=== PATIENT | male | born 1995 | race Caucasian/White ===

== ENCOUNTER → 2025-02-03 | Outpatient (CLI) | payer OTHER, SELFPAY ==
--- NOTE | 2025-02-03 14:25 | ECHOCS_ITS ---
Reason For Study Reason For Study: Ischemic Heart Disease Procedure This was a 2D Doppler, Color Flow transthoracic echocardiogram. The study was technically difficult. Contrast injection was performed. Exam performed in department. Left Ventricle Normal LV size. Moderate concentric left ventricular hypertrophy. The left ventricular ejection fraction is 55 %. No regional wall motion abnormalities noted. Right Ventricle Normal RV size. Normal systolic function. Atria Normal left atrium. Normal right atrium. Mitral Valve Normal mitral valve. Tricuspid Valve Normal tricuspid valve. Aortic Valve Trisinus/trileaflet aortic valve. Pulmonic Valve Normal pulmonic valve. Great Vessels Normal aortic root. The pulmonary artery is normal size. Inferior vena cava collapse with respiration. Pericardium/Pleural No pericardial effusion. Medication 22 gauge I.V. with prn adaptor inserted into right arm. Diluted definity 1ml given slow IV push to enhance endocardial definition. MMode/2D Measurements & Calculations LVIDd: 4.8 cm IVSd: 1.5 cm CO(Teich): 5.4 l/min LVIDs: 3.7 cm LVPWd: 1.3 cm RVDd: 4.1 cm FS: 24.2 % Ao root diam: 3.7 cm LAV(MOD-bp): 39.6 ml LVAd ap4: 46.6 cm2 LAV(MOD-bp) Indexed: 14.1 ml/m2 LVLd ap4: 11.1 cm LAV(MOD-sp2): 65.5 ml EDV(MOD-sp4): 161.2 ml LAV(MOD-sp4): 20.4 ml EDV(sp4-el): 165.3 ml LVAs ap4: 28.8 cm2 LVLs ap4: 9.4 cm ESV(MOD-sp4): 74.0 ml ESV(sp4-el): 75.1 ml EF(MOD-sp4): 54.1 % EF(sp4-el): 54.6 % CO(MOD-sp4): 9.0 l/min SV(sp4-el): 90.2 ml Ao sinus diam: 4.7 cm SV(MOD-sp4): 87.2 ml SI(MOD-sp4): 31.1 ml/m2 Ao ST Junction: 3.8 cm LA A4 area: 10.7 cm2 LA dimension(2D): 4.0 cm RA A4 area: 22.2 cm2 Time Measurements MV dec time: 0.20 sec Doppler Measurements & Calculations MV E max kailash: 59.0 cm/sec Lat Peak E' Kailash: 9.1 cm/sec Med Peak E' Kailash: 10.8 cm/sec MV A max kailash: 47.7 cm/sec E/E' lat: 6.5 E/E' med: 5.5 MV E/A: 1.2 MV V2 max: 63.5 cm/sec MV P1/2t max kailash: 64.0 cm/sec Ao V2 max: 117.4 cm/sec MV max P.6 mmHg MV P1/2t: 63.9 msec Ao max P.5 mmHg MV V2 mean: 37.3 cm/sec MV dec slope: 293.5 cm/sec2 Ao V2 mean: 81.7 cm/sec MV mean P.67 mmHg Ao mean P.1 mmHg MV V2 VTI: 13.7 cm MVA(P1/2t): 3.4 cm2 Ao V2 VTI: 21.7 cm AV (velocity ratio): 0.83 LV V1 max: 105.3 cm/sec PA V2 max: 130.6 cm/sec LV V1 max P.4 mmHg PA V2 mean: 97.7 cm/sec LV V1 mean P.9 mmHg LV V1 mean: 82.3 cm/sec LV V1 VTI: 18.0 cm ECHO/Echo Complete W/ Contrast Interpretation Summary Normal LV size. Moderate concentric left ventricular hypertrophy. The left ventricular ejection fraction is 55 %. Contrast injection was performed. Ordering Physician: Sav Ogden Referring Physician: Sav Ogden Performed By: Yo Arteaga RCS
== END | disposition home or self-care (01) ==
LOC: CVS 14:24
PROVIDERS: Referring Provider Chiropractor; Visit Provider Chiropractor
DX: I51.7 Cardiomegaly (principal)
CPT/HCPCS: 93306; Q9957; A4216; C8929